=== PATIENT | female | born 1995 | race Caucasian/White ===

== ENCOUNTER 2018-01-11 16:00 | Emergency (ER) | payer BC ==
--- NOTE | 2018-01-11 16:27 | EDM.PDOC ---
ED HPI GENERAL MEDICAL PROBLEM - General Chief Complaint: Lower Extremity Injury/Pain Stated Complaint: LT FOOT HURTS Time Seen by Provider: 01/11/18 16:02 Source of Information: Reports: Patient History Limitations: Reports: No Limitations - History of Present Illness INITIAL COMMENTS - FREE TEXT/NARRATIVE: HISTORY AND PHYSICAL: History of present illness: Patient is a 23-year-old female who presents to the emergency room with complaints of left ankle and foot pain since Monday. She states she slipped on some water from standing height and twisted her left ankle and resulted in a fall. Since that time she has elevated, iced and use [id number] products for pain management but has not improved. Moderate bruising to the distal ankle going into the anterior portion of the foot. States the pain is worse with weightbearing and has difficulty with ambulation due to pain. Denies any previous injury or trauma/surgery to the affected extremity. Denies any numbness or tingling to the affected extremity. Review of systems: As per history of present illness and below otherwise all systems reviewed and negative. Past medical history: As per history of present illness and as reviewed below otherwise noncontributory. Surgical history: As per history of present illness and as reviewed below otherwise noncontributory. Social history: No reported history of drug or alcohol abuse. Family history: As per history of present illness and as reviewed below otherwise noncontributory. Physical exam: General: Well-developed and well-nourished 23-year-old female. Alert and oriented. Nontoxic appearing and in no acute distress. HEENT: Atraumatic, normocephalic, pupils reactive, negative for conjunctival pallor or scleral icterus, mucous membranes moist, throat clear, neck supple, nontender, trachea midline. Lungs: Clear to auscultation, breath sounds equal bilaterally, chest nontender. Heart: S1S2, regular, negative for clicks, rubs, or JVD. Abdomen: Soft, nondistended, nontender. Negative for masses or hepatosplenomegaly. Negative for costovertebral tenderness. Pelvis: Stable nontender. Genitourinary: Deferred. Rectal: Deferred. Extremities: Moves all extremities per self without difficulty or deficits. Does have pain with weightbearing to the left foot and ankle. negative for cords or calf pain. Neurovascular unremarkable. Skin: Soft tissue swelling to the medial and lateral ankle extending into the anterior portion of the foot with some bruising. Strong pedal pulse with +CMS bilaterally. Neuro: Awake, alert, oriented. Cranial nerves II through XII unremarkable. Cerebellum unremarkable. Motor and sensory unremarkable throughout. Exam nonfocal. X-ray shows Transverse non-displaced fracture involving the proximal shaft of the 3rd metatarsal bone. We'll place the patient and a cam walker boot and crutches. Diclofenac and Saint James were prescribed. Will refer her to podiatry. Education was completed. Patient voices understanding and is agreeable to plan of care. Denies any further questions Diagnostics: X-ray of ankle/foot Therapeutics: [] Impression: Metatarsal fracture, left 3rd digit Plan: 1. Please use the cam walker boot and crutches until you follow up with the county supervisor. Nonweightbearing until directed otherwise. Rest, ice, elevate the extremity over the next couple days. 2. Please use the Cataflam and Saint James as directed. Do not take any additional NSAID such as ibuprofen or Aleve for taking the Cataflam. Please take with food. The Saint James should be reserved for severe pain and not be taken while needing to function outside of the house, as this is a narcotic. This medication will cause drowsiness. 3. Follow-up with your county supervisor in the next week. Return to the ED as needed and as discussed. Definitive disposition and diagnosis as appropriate pending reevaluation and review of above. Onset Date: 01/08/18 Duration: Day(s): Location: Reports: Lower Extremity, Left left ankle Pain Score (Numeric/FACES): 8 - Related Data Allergies Allergy/AdvReac Type Severity Reaction Status Date / Time No Known Allergies Allergy Verified 01/11/18 16:09 Home Meds: Home Meds . [No Known Home Meds] 01/11/18 [History] Past Medical History HEENT History: Reports: None Cardiovascular History: Reports: None Respiratory History: Reports: None Gastrointestinal History: Reports: None Genitourinary History: Reports: None MODELING DIRECTOR History: Reports: None Musculoskeletal History: Reports: None Neurological History: Reports: None Psychiatric History: Reports: None Endocrine/Metabolic History: Reports: None Hematologic History: Reports: None Immunologic History: Reports: None Oncologic (Cancer) History: Reports: None Dermatologic History: Reports: None - Past Surgical History Head Surgeries/Procedures: Reports: None HEENT Surgical History: Reports: Tonsillectomy Cardiovascular Surgical History: Reports: None Respiratory Surgical History: Reports: None GI Surgical History: Reports: None Female Surgical History: Reports: None Endocrine Surgical History: Reports: None Neurological Surgical History: Reports: None Musculoskeletal Surgical History: Reports: None Oncologic Surgical History: Reports: None Dermatological Surgical History: Reports: None Social & Family History - Family History Family Medical History: Noncontributory - Tobacco Use Smoking Status *Q: Current Every Day Smoker Years of Tobacco use: 8 Packs/Tins Daily: 1 - Caffeine Use Caffeine Use: Reports: Coffee - Recreational Drug Use Recreational Drug Use: No Review of Systems - Review of Systems Review Of Systems: ROS reveals no pertinent complaints other than HPI. ED EXAM, GENERAL - Physical Exam Exam: See Below (See dictation) Course - Vital Signs Last Recorded V/S: Last Vital Signs Temp 98.6 F 01/11/18 16:10 Pulse 104 H 01/11/18 16:10 Resp 18 01/11/18 16:10 BP 148/86 H 01/11/18 16:10 Pulse Ox 96 01/11/18 16:10 - Orders/Labs/Meds Orders: Active Orders 24 hr Category Date Time Status Ankle Min 3V Lt [CR] Stat Exams 01/11/18 16:19 Taken Foot 2V Lt [CR] Stat Exams 01/11/18 16:19 Taken DME for Discharge [COMM] Stat Oth 01/11/18 17:53 Ordered Departure - Departure Time of Disposition: 17:48 Disposition: Home, Self-Care 01 Clinical Impression: Metatarsal fracture Qualifiers: Encounter type: initial encounter Metatarsal bone: third Fracture type: closed Fracture alignment: nondisplaced Laterality: left Qualified Code(s): S92.335A - Nondisplaced fracture of third metatarsal bone, left foot, initial encounter for closed fracture - Discharge Information Instructions: Tarsal Fracture Referrals: PCP,None [Primary Care Provider] - Forms: ED Department Discharge Additional Instructions: My general discharge The following information is given to patients seen in the emergency department who are being discharged to home. This information is to outline your options for follow-up care. We provide all patients seen in our emergency department with a follow-up referral. The need for follow-up, as well as the timing and circumstances, are variable depending upon the specifics of your emergency department visit. If you don't have a primary care physician on staff, we will provide you with a referral. We always advise you to contact your personal physician following an emergency department visit to inform them of the circumstance of the visit and for follow-up with them and/or the need for any referrals to a consulting specialist. The emergency department will also refer you to a specialist when appropriate. This referral assures that you have the opportunity for follow-up care with a specialist. All of these measure are taken in an effort to provide you with optimal care, which includes your follow-up. Under all circumstances we always encourage you to contact your private physician who remains a resource for coordinating your care. When calling for follow-up care, please make the office aware that this follow-up is from your recent emergency room visit. If for any reason you are refused follow-up, please contact the [facility] Emergency Department at and asked to speak to the emergency department charge nurse. Dr Armstrong [address] [address] 1. Please use the cam walker boot and crutches until you follow up with the county supervisor. Nonweightbearing until directed otherwise. Rest, ice, elevate the extremity over the next couple days. 2. Please use the Cataflam and Saint James as directed. Do not take any additional NSAID such as ibuprofen or Aleve for taking the Cataflam. Please take with food. The [place] should be reserved for severe pain and not be taken while needing to function outside of the house, as this is a narcotic. This medication will cause drowsiness. 3. Follow-up with your county supervisor in the next week. Return to the ED as needed and as discussed. - My Orders Last 24 Hours: My Active Orders 01/11/18 16:19 Ankle Min 3V Lt [CR] Stat Foot 2V Lt [CR] Stat 01/11/18 17:53 DME for Discharge [COMM] Stat - Assessment/Plan Last 24 Hours: My Active Orders 01/11/18 16:19 Ankle Min 3V Lt [CR] Stat Foot 2V Lt [CR] Stat 01/11/18 17:53 DME for Discharge [COMM] Stat
--- NOTE | 2018-01-12 12:24 | CR ---
EXAM DATE: 01/11/18 PATIENT'S AGE: 23 Patient: TAMIE MULLIGAN Facility: [place], [place] Site . Site : 1995 Study: XRay Extremity Left ankle [id number]/8/2018 5:05:04 PM Ordering Physician: Doctor Ray Final Report: INDICATION: fell 3 days ago TECHNIQUE: Left ankle 3 views. COMPARISON: None. FINDINGS: Bones: Alignment is normal. No fractures or bone lesions. Joint spaces: Unremarkable. Soft tissues: Unremarkable. IMPRESSION: Unremarkable left ankle. Dictated by: Roe Burleson MD @ 01/11/2018 17:52:24 (Electronic Signature) Report Signed by Proxy. KARINE
--- NOTE | 2018-01-12 12:27 | CR ---
EXAM DATE: 01/11/18 PATIENT'S AGE: 23 Patient: TAMIE MULLIGAN Facility: [place], [place] Site . Site : 1995 Study: XRay Extremity Left foot [id number]/8/2018 5:07:08 PM Ordering Physician: Doctor Ray Final Report: INDICATION: Fall TECHNIQUE: Two views left foot COMPARISON: None FINDINGS: Bones: Transverse nondisplaced fracture involving the proximal shaft of the 3rd metatarsal bone. Joint spaces: Unremarkable. Soft tissues: Unremarkable. IMPRESSION: Transverse nondisplaced fracture involving the proximal shaft of the 3rd metatarsal bone. Dictated by Roe Burleson MD @ Jan 11 2018 5:51PM (Electronic Signature) Report Signed by Proxy. KARINE
== END 2018-01-11 18:10 | disposition home or self-care (01) ==
LOC: MW.ED 16:00
DX: S92.335A Nondisplaced fracture of third metatarsal bone, left foot, initial encounter for closed fracture (principal); F17.210 Nicotine dependence, cigarettes, uncomplicated; W01.0XXA Fall on same level from slipping, tripping and stumbling without subsequent striking against object, initial encounter
CPT/HCPCS: 73610-26-LT; 73610-LT; 73620-26-LT; 73620-LT; 99283; 99284